=== PATIENT | female | born 1950 | race Caucasian/White ===

== ENCOUNTER → 2020-09-20 | Outpatient (CLI) | payer BC ==
[~2020-09-20] MED LIST: ALBU17IN INH; ALBU8.5H INH; ALPR0.5T3 PO; ALPR1TAB3 PO; ATOR40TA75 PO; D31000TA2 PO; FISH1000 PO; FLON1SPR; LISI10TA22 PO; METF10004 PO; PROT1TAB2 PO; PULM90IN INH; RANI150T PO; RANI15TA PO; SALMDISK INH; TRAZ-257 PO; VENL150T14 PO; VENL37.598 PO; VITA100066 PO; XANA1TAB2 PO
== END ==
LOC: M LABSMTC 11:43
PROVIDERS: ATTEND Anesthesiology
DX: Z01.812 Encounter for preprocedural laboratory examination (principal); Z20.822 Contact with and (suspected) exposure to COVID-19

== ENCOUNTER 2020-09-24 06:51 | Day surgery (SDC) | payer MEDICARE, BC ==
[~2020-09-24] VITALS: Ht 162.6 cm; Wt 87.1 kg
[~2020-09-24 06:51] MED LIST changes: +LIDOCAINE 2% 100MG/5ML SDV (FOR ANES.) As Ordered ONE; +NS 1,000 ML IV ONE; +SIMETHICONE 40MG/0.6ML DROPS 30ML As Ordered ONE; +propofoL 200 MG/20 ML VIAL As Ordered ONE
--- NOTE | 2020-09-24 07:58 | ROOR ---
Patient Name: Nayana Walters Procedure Date: 09/24/2020 7:32 AM Date of : 1950 Age: 70 Room: [facility] Gender: Female Note Status: Finalized Procedure: Colonoscopy Indications: Colon cancer screening in patient at increased risk: Colorectal cancer in mother Providers: Antoni Shelley MD Referring MD: Rodrick Boyd MD Requesting Provider: Medicines: Monitored Anesthesia Care Complications: No immediate complications. Procedure: Pre-Anesthesia Assessment: - The heart rate, respiratory rate, oxygen saturations, blood pressure, adequacy of pulmonary ventilation, and response to care were monitored throughout the procedure. The Colonoscope was introduced through the anus and advanced to the terminal ileum, with identification of the appendiceal orifice and IC valve. The colonoscopy was performed without difficulty. The patient tolerated the procedure well. The quality of the bowel preparation was good. Findings: The perianal and digital rectal examinations were normal. A 5 mm polyp was found in the ascending colon. The polyp was flat. The polyp was removed with a cold snare. Resection and retrieval were complete. Mild sigmoid diverticulosis and small internal hemorrhoids. The exam was otherwise without abnormality on direct and retroflexion views. Impression: - One 5 mm polyp in the ascending colon, removed with a cold snare. Resected and retrieved. - A few small sigmoid diverticula and small internal hemorrhoids. - The examination was otherwise normal on direct and retroflexion views. Recommendation: - Repeat colonoscopy in 5 years for surveillance. Procedure Code(s): --- Professional --- 37050, Colonoscopy, flexible; with removal of tumor(s), polyp(s), or other lesion(s) by snare technique Diagnosis Code(s): --- Professional --- Z80.0, Family history of malignant neoplasm of digestive organs K63.5, Polyp of colon CPT copyright 2019 [employer]. All rights reserved. The codes documented in this report are preliminary and upon truck driver review may be revised to meet current compliance requirements. Antoni Shelley MD Antoni Shelley MD 09/24/2020 7:57:59 AM Electronically signed by Antoni Shelley MD Number of Addenda: 0 Note Initiated On: 09/24/2020 7:32 AM Estimated Blood Loss: Estimated blood loss: none.
[2020-09-24 08:21] VITALS: BP 137/75
== END 2020-09-24 08:22 | disposition home or self-care (01) ==
LOC: M OPP 06:51
PROVIDERS: ATTEND Internal Medicine Gastroenterology
DX: Z12.11 Encounter for screening for malignant neoplasm of colon (principal); Z80.0 Family history of malignant neoplasm of digestive organs; K63.5 Polyp of colon; K57.30 Diverticulosis of large intestine without perforation or abscess without bleeding; K64.8 Other hemorrhoids; Z79.84 Long term (current) use of oral hypoglycemic drugs; Z79.899 Other long term (current) drug therapy; Z88.0 Allergy status to penicillin; Z88.2 Allergy status to sulfonamides; Z91.013 Allergy to seafood